=== PATIENT | female | born 1960 | race Caucasian/White ===

== ENCOUNTER 2016-07-16 09:10 | Day surgery (SDC) | payer BC ==
[2016-07-16] MEDS ORDERED: LIDOCAINE 2% MDV (20MG/ML) 20ML VIAL IV ONE (14:00)
[2016-07-16] MEDS ORDERED: PROPOFOL 10 MG/ML VIAL IV ONE (14:00)
[2016-07-16] MEDS ORDERED: MIDAZOLAM HCL 2MG/2ML VIAL IV ONE (14:00)
--- NOTE | 2016-07-20 09:45 | Operative Note ---
DATE OF SURGERY: 07/16/2016 Surgeon: Win Marie DO Referring physician: Aldo White DO PREOPERATIVE DIAGNOSIS: Previous history of large colon polyps. POSTOPERATIVE DIAGNOSES: Multiple colon polyps (2 cecal hot snare x2, 2 transverse cold snare x2, 2 sigmoid, cold forceps removal x2). OPERATION: COLONOSCOPY WITH COLD FORCEPS, COLD SNARE, AND HOT SNARE POLYPECTOMIES. PREPARATION QUALITY: Good. ESTIMATED BLOOD LOSS: Minimal. SPECIMENS: 2 cecal polyps, 2 transverse polyps, 2 sigmoid polyps. PROCEDURE: After informed consent was obtained with the patient, she was placed in the left lateral decubitus position in the endoscopy suite, sedated and monitored by the Department of Anesthesia. Digital rectal exam was unremarkable. A well-lubricated PCF 180 colonoscope was inserted in the rectum and advanced to the cecum. The preparation quality was good. Near the ileocecal valve and the cecum there were two polyps; one approximately 3 to 4 mm in diameter and the other approximately 6 mm in diameter. The 3 to 4 mm polyp was removed with a polypectomy snare Erbe Endocut ____current, was completely ablated, no tissue was retrievable. The larger sessile polyp was removed with snare and Erbe Endocut current. No bleeding was noted at the site, the polyp was retrieved. The remainder of the ascending colon was unremarkable. The transverse colon revealed two 4 mm sessile polyps, each removed with a cold snare, which were retrieved. Minimal bleeding was noted. The descending colon was unremarkable. The sigmoid colon revealed two diminutive polyps, each removed with a cold forceps. The rectum was unremarkable in forward and in J-turn views. The endoscope was straightened, the rectal ampulla deflated. The endoscope was removed. RECOMMENDATIONS: The patient should resume her medications and diet. She will require repeat exam in 3 years. As always, thank you for allowing me to participate in the care of your patient. CC: Dr. Win MUNROE
== END 2016-07-16 11:17 | disposition home or self-care (01) ==
LOC: HOP 09:10
PROVIDERS: ATTEND Internal Medicine Gastroenterology
DX: Z86.010 Personal history of colon polyps (principal); D12.0 Benign neoplasm of cecum; D12.3 Benign neoplasm of transverse colon; K63.5 Polyp of colon; F17.200 Nicotine dependence, unspecified, uncomplicated

== ENCOUNTER 2018-03-10 12:17 | Emergency (ER) | payer BC ==
[2018-03-10] MEDS ORDERED: 0.9 % SODIUM CHLORIDE 1,000 ML BAG IV ONE (12:34)
--- NOTE | 2018-03-10 12:35 | Emergency Department Record ---
History of Present Illness - General Chief complaint: Weakness Stated complaint: WEAKNESS Time Seen by Provider: 03/10/18 12:33 Source: Patient, Family Mode of Arrival: Ambulatory Limitations: No limitations - History of Present Illness Initial comments: 57 yo female presents with weakness and slurred speech that started at noon while working in the kitchen. He states her speech was initially minimally intelligible. She felt off with her walking and mildly dizzy with a mild headache. No vision changes. No confusion. She felt "drunk". Her speech has dramatically improved since the onset. It is near normal now. No stroke history. PCP Dr Christopher BERKOWITZ Complaint: Generalized weakness Onset/Timin -: Minutes(s) Location: Generalized Severity: Moderate Quality: Other Consistency: Other Improves with: None Worsens with: None Context: Other Associated Symptoms: Denies other symptoms - [place] Coma Scale Eye Response: (4) Open spontaneously Motor Response: (6) Obeys commands Verbal Response: (5) Oriented [place] Total: 15 - Symptoms of Stroke Onset of Symptoms Time: 11:50 Symptoms of stroke: Muscle Weakness, Unsteady When Walking - Related Data Home Medications Medication Instructions Recorded Confirmed Last Taken Glasco-3 Fatty Acids/Fish Oil [Fish 1 each PO DAILY 03/10/18 03/10/18 Unknown Oil 1,000 mg Capsule] Allergies Allergy/AdvReac Type Severity Reaction Status Date / Time No Known Drug Intolerances Allergy Unknown no Unverified 03/10/18 12:28 allergies Travel Screening - Travel/Exposure Within Last 30 Days Have you traveled within the last 30 days?: No Review of Systems Constitutional: Reports: Weakness. Denies: Chills, Fever, Malaise Eyes: Denies: Eye discharge, Eye pain, Photophobia, Vision change ENT: Denies: Congestion, Throat pain Respiratory: Denies: Cough, Dyspnea Cardiovascular: Denies: Chest pain, Palpitations, Syncope Endocrine: Reports: Fatigue Gastrointestinal: Denies: Abdominal pain, Diarrhea, Nausea, Vomiting Genitourinary: Denies: Dysuria Musculoskeletal: Denies: Arthralgia, Back pain, Myalgia Skin: Denies: Bruising, Change in color, Rash Neurological: Reports: Abnormal gait, Headache, Weakness, Other (speech difficulty). Denies: Confusion, Numbness, Seizure, Tingling, Tremors, Vertigo Psychiatric: Denies: Anxiety Hematological/Lymphatic: Denies: Blood Clots, Easy bleeding, Easy bruising, Swollen glands Past Medical History - SOCIAL HISTORY Smoking Status: Former smoker Alcohol Use: None Drug Use: None - RESPIRATORY Hx Respiratory Disorders: No - CARDIOVASCULAR Hx Cardio Disorders: No - NEURO Hx Neuro Disorders: No - GI Hx GI Disorders: No - Hx Genitourinary Disorders: No Comment:: over 1 year ago - ENDOCRINE Hx Endocrine Disorders: No - MUSCULOSKELETAL Hx Musculoskeletal Disorders: Yes Comment:: osteoarthritis left knee - PSYCH Hx Psych Problems: No - HEMATOLOGY/ONCOLOGY Hx Hematology/Oncology Disorders: No Family Medical History Any Significant Family History?: Yes Hx Cancer: Mother Physical Exam - General General Appearance: Alert, Oriented x3, Cooperative, No acute distress Limitations: No limitations - Head Head exam: Atraumatic, Normal inspection - Eye Eye exam: Normal appearance, PERRL, EOMI. negative: Conjunctival injection, Nystagmus - ENT ENT exam: Normal exam Ear exam: Normal external inspection Nasal Exam: Normal inspection Mouth exam: Normal external inspection - Neck Neck exam: Normal inspection - Respiratory Respiratory exam: Normal lung sounds bilaterally. negative: Respiratory distress - Cardiovascular Cardiovascular Exam: Regular rate, Normal rhythm, Normal heart sounds Peripheral Pulses: 2+: Radial (R), Radial (L) - GI/Abdominal GI/Abdominal exam: Soft - Rectal Rectal exam: Deferred - exam: Deferred - Extremities Extremities exam: Normal inspection, Full ROM. negative: Pedal edema, Tenderness - Back Back exam: Denies: CVA tenderness (R), CVA tenderness (L) - Neurological Neurological exam: Alert, CN II-XII intact, Oriented X3, Other (Minimal speech slowing but clear, NO PND, No ataxia, normal finger tracking). negative: Altered, Motor sensory deficit - Psychiatric Psychiatric exam: Normal affect, Normal mood - Skin Skin exam: Dry, Intact, Normal color, Warm Stroke Assessment - NIH Stroke Scale 1a. Level of Consciousness: (0) Alert 1b. LOC Questions: (0) Answers Correctly 1c. LOC Commands: (0) Performs Tasks Correctly 2. Best Gaze: (0) Normal 3. Visual: (0) No Visual Loss 4. Facial Palsy: (0) Normal Symmetrical Movement 5a. Motor Arm Left: (0) No Drift 5b. Motor Arm Right: (0) No Drift 6a. Motor Leg Left: (0) No Drift 6b. Motor Leg Right: (0) No Drift 7. Limb Ataxia: (0) Absent 8. Sensory: (0) Normal 9. Best Language: (0) No Aphasia 10. Dysarthria: (1) Mild/Moderate Dysarthria 11. Extinction/Inattention: (0) No Abnormality NIH Stoke Scale Total: 1 Course Vital Signs 03/10/18 12:24 Pulse Rate 81 Respiratory 20 Rate Blood Pressure 174/99 Pulse Ox 98 - Reevaluation(s) Reevaluation #1: 03/10/18 12:47 NIH of 1 given the states speech is not 100% returned 03/10/18 12:59 HCT is negative for acute process or bleed [facility] ONE CALL contacted to discuss with Stroke Neurology On recheck speech is nearly baseline. NIH 0-1 03/10/18 13:[address] Christianson of stroke. He requests ED to ED. Dr Valerio of the ED accepts Medical Decision Making - Lab Data Result diagrams: 03/10/18 12:30 03/10/18 12:30 Disposition Disposition: Transfer Clinical Impression: Dysarthria Disposition: Acute Care Hospital Transfer Transfer To: [facility] Reason For Transfer: Dysarthria Accepting Physician: Iman Christianson Time Discussed w/Accepting Physician: 13:00 Condition: (2) Stable Forms: Patient Portal Access Time of Disposition: 13:00 Quality - Quality Measures Quality Measures: N/A - Blood Pressure Screening Does Patient Have Any of the Following: No Blood Pressure Classification: Hypertensive Reading Systolic Measurement: 174 Diastolic Measurement: 99 Screening for High Blood Pressure: < Pre-Hypertensive BP, F/U Documented > [ [id number]] Pre-Hypertensive Follow-up Interventions: Referral to alternative/primary care provider.
[2018-03-10 12:51] LABS: BASO % 0.7 % (0-6); GRAN % 55.5 % (47-80); HEMATOCRIT 45.5 % (35.0-47.0); HEMOGLOBIN 14.9 gm/dl (11.6-16.0); LYMPH % 33.8 % (16-45); MEAN CELL VOLUME 92.9 fl (81-97); MEAN CORPUSCULAR HEMOGLOBIN 30.4 pg (27-33); MEAN CORPUSCULAR HGB CONC 32.7 g/dl (32-36); MEAN PLATELET VOLUME 8.8 fl (7.4-10.4); PLATELET COUNT 355 K/uL (130-400); RED CELL DISTRIBUTION WIDTH 12.9 % (11.5-14.5)
[2018-03-10 12:55] LABS: GLUCOSE,RANDOM 87 mg/dL (70-110)
[2018-03-10] MEDS ORDERED: ASPIRIN 81 MG CHEWABLE TABLET PO ONE (13:04)
[2018-03-10 13:06] LABS: PARTIAL THROMBOPLASTIN TIME 26.7 SECONDS (24.5-39.1); PROTHROMBIN TIME (PATIENT) 9.8 SECONDS (9.5-12.1)
[2018-03-10 16:51] LABS: BLOOD UREA NITROGEN 9 mg/dL (6-20); CREATININE 0.7 mg/dL (0.5-0.9); EST GLOMERULAR FILTRATION RATE > 60 mL/min; TOTAL PROTEIN 8.2 g/dL (6.6-8.7)
[2018-03-10 16:55] LABS: ALB/GLOB RATIO 1.2 (1.1-1.8); ALBUMIN 4.5 g/dL (4.0-5.0); ALKALINE PHOSPHATASE 120 U/L (45-87); ALT/SGPT 91 U/L (<33); AST/SGOT 46 U/L (10.0-35.0)
[2018-03-10 17:09] LABS: THYROID STIMULATING HORMONE 3.21 uIU/mL (0.270-4.20)
--- NOTE | 2018-03-11 08:05 | CT SCAN REPORT ---
EXAM: CT OF THE HEAD WITHOUT CONTRAST HISTORY: SUDDEN ONSET OF WEAKNESS. TECHNIQUE: Sequential axial images were obtained from the foramen magnum to the vertex without contrast administration. FINDINGS: The brain volume is normal. No large territorial infarct, hemorrhage , mass effect, or midline shift. No extraaxial fluid collection. The orbits, paranasal sinuses, and mastoid air cells are normal. IMPRESSION: NO ACUTE INTRACRANIAL ABNORMALITY BY CT EXAMINATION. JOB NUMBER: [id number] MTDD
== END 2018-03-10 13:30 | disposition short-term general hospital (02) ==
LOC: ER 12:17
DX: I69.922 Dysarthria following unspecified cerebrovascular disease (principal); R53.1 Weakness; R51 Headache; Z87.891 Personal history of nicotine dependence
CPT/HCPCS: 70450; 80053; 84443; 84484; 85025; 85610; 85730; 93005; 93010; 99285; J7030